=== PATIENT | male | born 1960 | race Caucasian/White ===

== ENCOUNTER → 2016-09-06 | Outpatient (CLI) | payer OTHER ==
[2016-09-06 08:20] LABS: ABSOLUTE BASOPHILS # (AUTO) 0.1 10^3/uL (0.0-0.2); ABSOLUTE EOSINOPHILS # (AUTO) 0.2 10^3/uL (0.0-0.6); ABSOLUTE LYMPHOCYTES (AUTO) 1.9 10^3/uL (0.5-4.7); ABSOLUTE MONOCYTES (AUTO) 0.5 10^3/uL (0.1-1.4); ABSOLUTE NEUT (AUTO) 3.4 10^3/uL (1.7-8.2); BASOPHILS % (AUTO) 1.4 % (0-2); EOSINOPHILS % (AUTO) 3.3 % (0-6); HEMATOCRIT 45.9 % (37.9-51.0); HEMOGLOBIN 15.4 g/dL (13.5-17.0); HGB HCT DIFFERENCE 0.3; MEAN CORPUSCULAR HEMOGLOBIN 31.9 pg (27.0-33.4); MEAN CORPUSCULAR HGB CONC 33.7 g/dL (32.0-36.0); MEAN CORPUSCULAR VOLUME 95 fl (80-97); MONOCYTES % (AUTO) 8.7 % (3-13); RED BLOOD COUNT 4.84 10^6/uL (4.35-5.55); RED CELL DISTRIBUTION WIDTH 12.9 % (11.5-14.0); SEGMENTED NEUTROPHILS % (AUTO) 55.6 % (42-78)
[2016-09-06 08:43] LABS: ALANINE AMINOTRANSFERASE 114 U/L (21-72); ALBUMIN 4.9 g/dL (3.5-5.0); ALKALINE PHOSPHATASE 55 U/L (38-126); ANION GAP 12 (5-19); ASPARTATE AMINO TRANSFERASE 96 U/L (17-59); BILIRUBIN,TOTAL 0.9 mg/dL (0.2-1.3); BLOOD UREA NITROGEN 12 mg/dL (7-20); CALCIUM 9.5 mg/dL (8.4-10.2); CARBON DIOXIDE 29 mmol/L (22-30); CHLORIDE 99 mmol/L (98-107); CHOLESTEROL 231.22 mg/dL (0-200); CREATININE RESULT 0.88 mg/dL (0.52-1.25); Direct HDL 60 mg/dL (>40); GLUCOSE 114 mg/dL (75-110); POTASSIUM 4.7 mmol/L (3.6-5.0); SODIUM 139.6 mmol/L (137-145); TOTAL PROTEIN 7.4 g/dL (6.3-8.2); TRIGLYCERIDES 152 mg/dL (<150)
[2016-09-06 08:54] LABS: DIRECT LDL 167 mg/dL (<100)
[2016-09-06 08:57] LABS: VLDL CHOLESTEROL 30.4 mg/dL (10-31)
== END ==
LOC: CCC 07:36
DX: J44.9 Chronic obstructive pulmonary disease, unspecified (principal)
CPT/HCPCS: 36415; 80053; 80061; 83036; 84443; 85025

== ENCOUNTER → 2016-09-13 | Outpatient (CLI) | payer OTHER ==
[2016-09-14 10:37] LABS: HEPATITIS C VIRUS AB <0.1 s/co ratio (0.0-0.9)
[2016-09-14 11:15] LABS: HEPATITIS A AB TOTAL Negative (Negative)
== END ==
LOC: CCC 10:05
DX: R94.5 Abnormal results of liver function studies (principal); J44.9 Chronic obstructive pulmonary disease, unspecified; R03.0 Elevated blood-pressure reading, without diagnosis of hypertension
CPT/HCPCS: 36415; 82977; 86317; 86708; 86709; 86803; 86804; 87340

== ENCOUNTER → 2017-09-27 | Outpatient (CLI) | payer OTHER ==
[2017-09-27 09:46] LABS: ABSOLUTE BASOPHILS # (AUTO) 0.1 10^3/uL (0.0-0.2); ABSOLUTE EOSINOPHILS # (AUTO) 0.2 10^3/uL (0.0-0.6); ABSOLUTE LYMPHOCYTES (AUTO) 1.9 10^3/uL (0.5-4.7); ABSOLUTE MONOCYTES (AUTO) 0.5 10^3/uL (0.1-1.4); ABSOLUTE NEUT (AUTO) 3.4 10^3/uL (1.7-8.2); BASOPHILS % (AUTO) 0.9 % (0-2); EOSINOPHILS % (AUTO) 3.3 % (0-6); HEMOGLOBIN 16.5 g/dL (13.5-17.0); MEAN CORPUSCULAR HEMOGLOBIN 32.8 pg (27.0-33.4); MEAN CORPUSCULAR HGB CONC 34.4 g/dL (32.0-36.0); MEAN CORPUSCULAR VOLUME 95 fl (80-97); MONOCYTES % (AUTO) 8.6 % (3-13); PLATELET COUNT 196 10^3/uL (150-450); RED BLOOD COUNT 5.04 10^6/uL (4.35-5.55); RED CELL DISTRIBUTION WIDTH 13.6 % (11.5-14.0); SEGMENTED NEUTROPHILS % (AUTO) 56.2 % (42-78); TOTAL CELLS COUNTED % (AUTO) 100 %; WHITE BLOOD COUNT 6.1 10^3/uL (4.0-10.5)
[2017-09-27 10:08] LABS: ALANINE AMINOTRANSFERASE 202 U/L (21-72); ALBUMIN 4.6 g/dL (3.5-5.0); ALKALINE PHOSPHATASE 60 U/L (38-126); ANION GAP 10 (5-19); ASPARTATE AMINO TRANSFERASE 132 U/L (17-59); BILIRUBIN,DIRECT 0.5 mg/dL (0.0-0.4); BILIRUBIN,TOTAL 0.6 mg/dL (0.2-1.3); BLOOD UREA NITROGEN 10 mg/dL (7-20); CALCIUM 10.2 mg/dL (8.4-10.2); CARBON DIOXIDE 29 mmol/L (22-30); CHLORIDE 101 mmol/L (98-107); CHOLESTEROL 230.22 mg/dL (0-200); GLUCOSE 124 mg/dL (75-110); POTASSIUM 5.2 mmol/L (3.6-5.0); TOTAL PROTEIN 7.6 g/dL (6.3-8.2); TRIGLYCERIDES 119 mg/dL (<150)
[2017-09-27 10:20] LABS: DIRECT LDL 172 mg/dL (<100)
== END ==
LOC: CCC 09:02
DX: J44.9 Chronic obstructive pulmonary disease, unspecified (principal)
CPT/HCPCS: 36415; 80053; 80061; 83036; 84153; 84443; 85025

== ENCOUNTER 2017-11-12 07:28 | Inpatient (IN) | payer SELFPAY ==
[2017-11-12] MEDS ORDERED: METHYLPREDNISOLONE INJ 125 MG/2 ML SDV IV ONE (07:48)
[2017-11-12] MEDS ORDERED: IPRATROPIUM/ALBUTEROL 0.5-2.5 MG/3 ML AMPUL NEB ONE (07:48)
--- NOTE | 2017-11-12 07:52 | ER Document Report ---
ED General - General Chief Complaint: Shortness Of Breath Stated Complaint: SHORTNESS OF BREATH Time Seen by Provider: 11/12/17 07:42 Mode of Arrival: Ambulatory Information source: Patient Notes: 57 yr old male history of COPD presents with complaints of COPD exacerbation. Patient notes he has been out of his medications for the past month. He does not have a PCP. Admits to intermittent productive cough. Denies any fevers or chills admits shortness of breath, patient is not on oxygen has never been intubated TRAVEL OUTSIDE OF THE [place] IN LAST 30 DAYS: No - HPI Onset: Last week Onset/Duration: Worse Quality of pain: No pain Severity: Moderate Pain Level: Denies Associated symptoms: Nonproductive cough, Productive cough, Shortness of breath Exacerbated by: Denies Relieved by: Denies Similar symptoms previously: No Recently seen / treated by doctor: No - Related Data Allergies/Adverse Reactions: fentanyl [Fentanyl] Adverse Reaction (Verified 11/12/17 07:36) Past Medical History - Social History Smoking Status: Current Every Day Smoker Cigarette use (# per day): Yes Chew tobacco use (# tins/day): No Smoking Education Provided: Yes Family History: Hypertension - Past Medical History Cardiac Medical History: Reports: Hx Hypertension Pulmonary Medical History: Reports: Hx Bronchitis, Hx COPD Musculoskeltal Medical History: Reports Hx Arthritis Psychiatric Medical History: Denies: Hx Depression Past Surgical History: Reports: Hx Orthopedic Surgery - upper back, right arm - Immunizations Hx Diphtheria, Pertussis, Tetanus Vaccination: Yes Review of Systems - Review of Systems Notes: REVIEW OF SYSTEMS: CONSTITUTIONAL : Denies fever, chills, or sweats. Denies recent illness. EENT: Denies eye, ear, throat, or mouth pain or symptoms. Denies nasal or sinus congestion or discharge. Denies throat, tongue, or mouth swelling or difficulty swallowing. CARDIOVASCULAR: Denies chest pain. Denies palpitations or racing or irregular heart beat. Denies ankle edema. RESPIRATORY: Admits intermittent productive cough shortness breath difficulty breathing GASTROINTESTINAL: Denies abdominal pain or distention. Denies nausea, vomiting , or diarrhea. Denies blood in vomitus, stools, or per rectum. Denies black, tarry stools. Denies constipation. GENITOURINARY: Denies difficulty urinating, painful urination, burning, frequency, blood in urine, or discharge. MUSCULOSKELETAL: Denies back or neck pain or stiffness. Denies joint pain or swelling. SKIN: Denies rash, lesions or sores. HEMATOLOGIC : Denies easy bruising or bleeding. LYMPHATIC: Denies swollen, enlarged glands. NEUROLOGICAL: Denies confusion or altered mental status. Denies passing out or loss of consciousness. Denies dizziness or lightheadedness. Denies headache. Denies weakness or paralysis or loss of use of either side. Denies problems with gait or speech. Denies sensory loss, numbness, or tingling. Denies seizures. PSYCHIATRIC: Denies anxiety or stress. Denies depression, suicidal ideation, or homicidal ideation. ALL OTHER SYSTEMS REVIEWED AND NEGATIVE. Dictation was performed using [employer] voice recognition software PHYSICAL EXAMINATION: GENERAL: Appears older than stated age mild respiratory distress HEAD: Atraumatic, normocephalic. EYES: Pupils equal round and reactive to light, extraocular movements intact, sclera anicteric, conjunctiva are normal. ENT: Nares patent, oropharynx clear without exudates. Moist mucous membranes. NECK: Normal range of motion, supple without lymphadenopathy LUNGS: Inspiratory expiratory wheezing noted all throughout tachypneic HEART: Tachycardic ABDOMEN: Soft, nontender, nondistended abdomen. No guarding, no rebound. No masses appreciated. Musculoskeletal: Normal range of motion, no pitting or edema. No cyanosis. NEUROLOGICAL: Cranial nerves grossly intact. Normal speech, normal gait. Normal sensory, motor exams PSYCH: Normal mood, normal affect. SKIN: Warm, Dry, normal turgor, no rashes or lesions noted. Physical Exam - Vital signs Vitals: Temp Pulse Resp BP Pulse Ox 98.4 F 95 26 H 155/84 H 91 L 11/12/17 07:35 11/12/17 07:35 11/12/17 07:35 11/12/17 07:35 11/12/17 07:35 Course - Re-evaluation Re-evalutation: 11/12/17 07:52 Patient was placed on oxygen upon arrival, he is on 2 L nasal cannula satting 95 %, he overall looks well, patient will be sent for imaging duo nebs and Solu- Medrol 11/12/17 09:51 Patient was ambulated and was satting anywhere between 92-95%, I took him off oxygen will watch him longer otherwise this appears to be acute COPD exacerbation 11/12/17 10:29 pt now satting 88-90% , will observe in hopsital. - Vital Signs Vital signs: Temp Pulse Resp BP Pulse Ox 98.4 F 95 19 129/71 H 94 11/12/17 07:35 11/12/17 07:35 11/12/17 08:01 11/12/17 08:01 11/12/17 08:01 - Laboratory Result Diagrams: 11/12/17 08:24 11/12/17 08:24 Laboratory results interpreted by me: 11/12/17 11/12/17 08:24 08:24 Eosinophils % 6.9 H Basophils % 2.2 H Sodium 136.2 L Glucose 118 H Direct Bilirubin 0.5 H AST 150 H ALT 173 H - Diagnostic Test Radiology reviewed: Image reviewed, Reports reviewed Discharge - Discharge Clinical Impression: COPD exacerbation Condition: Stable Disposition: ADMITTED OBSERVATION Admitting Provider: Hospitalist Unit Admitted: Telemetry
--- NOTE | 2017-11-12 08:18 | RADIOLOGY REPORT (SQ) ---
EXAM DESCRIPTION: CHEST 2 VIEWS COMPLETED DATE/TIME: 11/12/2017 7:58 am REASON FOR STUDY: copd exacerbation COMPARISON: 06/02/2016 EXAM PARAMETERS: NUMBER OF VIEWS: two views TECHNIQUE: Digital Frontal and Lateral radiographic views of the chest acquired. RADIATION DOSE: NA LIMITATIONS: none FINDINGS: LUNGS AND PLEURA: No opacities, masses or pneumothorax. No pleural effusion. MEDIASTINUM AND HILAR STRUCTURES: No masses or contour abnormalities. HEART AND VASCULAR STRUCTURES: Heart normal size. No evidence for failure. BONES: No acute findings. HARDWARE: None in the chest. OTHER: No other significant finding. IMPRESSION: NO ACUTE RADIOGRAPHIC FINDING IN THE CHEST. TECHNICAL DOCUMENTATION: JOB ID: [id number] [employer]- All Rights Reserved Reading location - IP/workstation name: [email or web address]
[2017-11-12 08:38] LABS: ABSOLUTE BASOPHILS # (AUTO) 0.1 10^3/uL (0.0-0.2); ABSOLUTE EOSINOPHILS # (AUTO) 0.4 10^3/uL (0.0-0.6); ABSOLUTE LYMPHOCYTES (AUTO) 1.7 10^3/uL (0.5-4.7); ABSOLUTE MONOCYTES (AUTO) 0.6 10^3/uL (0.1-1.4); ABSOLUTE NEUT (AUTO) 3.7 10^3/uL (1.7-8.2); BASOPHILS % (AUTO) 2.2 % (0-2); EOSINOPHILS % (AUTO) 6.9 % (0-6); HEMATOCRIT 46.4 % (37.9-51.0); HEMOGLOBIN 15.9 g/dL (13.5-17.0); LYMPHOCYTES % (AUTO) 25.6 % (13-45); MEAN CORPUSCULAR HEMOGLOBIN 32.6 pg (27.0-33.4); MEAN CORPUSCULAR HGB CONC 34.3 g/dL (32.0-36.0); MEAN CORPUSCULAR VOLUME 95 fl (80-97); MONOCYTES % (AUTO) 8.7 % (3-13); PLATELET COUNT 197 10^3/uL (150-450); RED BLOOD COUNT 4.88 10^6/uL (4.35-5.55); RED CELL DISTRIBUTION WIDTH 13.7 % (11.5-14.0); SEGMENTED NEUTROPHILS % (AUTO) 56.6 % (42-78); TOTAL CELLS COUNTED % (AUTO) 100 %; WHITE BLOOD COUNT 6.5 10^3/uL (4.0-10.5)
[2017-11-12 08:52] LABS: ALANINE AMINOTRANSFERASE 173 U/L (21-72); ALBUMIN 4.4 g/dL (3.5-5.0); ALKALINE PHOSPHATASE 59 U/L (38-126); ANION GAP 8 (5-19); ASPARTATE AMINO TRANSFERASE 150 U/L (17-59); BILIRUBIN,DIRECT 0.5 mg/dL (0.0-0.4); BILIRUBIN,TOTAL 0.8 mg/dL (0.2-1.3); BLOOD UREA NITROGEN 10 mg/dL (7-20); CALCIUM 9.8 mg/dL (8.4-10.2); CARBON DIOXIDE 27 mmol/L (22-30); CHLORIDE 101 mmol/L (98-107); GLUCOSE 118 mg/dL (75-110); POTASSIUM 4.2 mmol/L (3.6-5.0); SODIUM 136.2 mmol/L (137-145); TOTAL PROTEIN 6.9 g/dL (6.3-8.2)
[2017-11-12] MEDS ORDERED: LEVALBUTEROL HCL NEB 0.63 MG/3 ML AMPUL NEB PRN (13:04)
[2017-11-12] MEDS ORDERED: ACETAMINOPHEN SOLN 325 MG/10.15 ML UDCUP PO PRN (13:05)
[2017-11-12] MEDS ORDERED: HYDRALAZINE HCL INJ/PF 20 MG/1 ML SDV IV PRN (13:12)
[2017-11-12] MEDS: METHYLPREDNISOLONE INJ 125 MG/2 ML SDV IV SCH ×2 (14:47→22:12)
[2017-11-12] MEDS: DOXYCYCLINE HYCLATE 100 MG TABLET PO SCH ×2 (14:47→22:15)
[2017-11-12] MEDS: BENZONATATE 100 MG CAPSULE PO SCH ×2 (14:47→22:12)
[2017-11-12] MEDS: HEPARIN SOD (PORCINE) 5,000 UNIT/ML 1 ML SYRINGE SUBCUT SCH ×2 (14:47→22:12)
[2017-11-12] MEDS: IPRATROPIUM/ALBUTEROL 0.5-2.5 MG/3 ML AMPUL NEB SCH ×2 (15:36→19:44)
[2017-11-12] MEDS ORDERED: METHYLPREDNISOLONE INJ 40 MG/1 ML SDV IV SCH (17:00)
--- NOTE | 2017-11-12 21:44 | PDOC H&P ---
History of Present Illness Admission Date/PCP: 11/12/17 11:16 Patient complains of: Shortness of breath & dyspnea History of Present Illness: GUILLE SUAREZ is a 57 year old male who presented to the ED with SOB, dyspnea, and cough x 2 weeks. The patient states he ran out of his advair a 'few weeks ago' and his repiratory symptoms have been getting progressively worse since then. The patient reports he was taking Mucinex and using his albuterol inhalers and nebulizers to help with his symptoms, but they offered no relief. Additionally, he reports that his dyspnea is exacerbated by smoke and strong odors ('if someone is wearing too much cologne'). The patient states that his SOB, coughing, and dyspnea have been persist, day and night, over the last two weeks - so much so that he is unable to sleep. PMH includes HTN, COPD, arthritis. The patient has never required intubation secondary to his COPD. While in the ED, the patient was given 3 Duoneb treatments and 125mg Solu- Medrol IV. The patient is resting in bed on supplemental oxygen 2L/min. He is able to speak in complete sentences, but needs to pause and take a breath in between each sentence. The patient is seen ambulating from the ED room to the bathroom without difficulty (off supplemental oxygen). However, following his ambulation, his Sp02 is 83-88% and the patient is purse lip breathing, and only able to speak in fragmented sentences. Past Medical History Cardiac Medical History: Reports: Hypertension Pulmonary Medical History: Reports: Bronchitis, Chronic Obstructive Pulmonary Disease (COPD) Musculoskeltal Medical History: Reports: Arthritis Psychiatric Medical History: Denies: Depression Past Surgical History Past Surgical History: Reports: Orthopedic Surgery - upper back disk repair, right arm fracture repair Social History Information Source: Patient Lives with: Alone Smoking Status: Current Every Day Smoker - 3-4 cigarettes p/day Frequency of Alcohol Use: None Hx Recreational Drug Use: No Drugs: None Hx Prescription Drug Abuse: No 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 WHEN HE WAS EXPOSED TO DUST/CHEMICALS AT WORK, TYPICALLY ENDING UP IN THE HOSPITAL 3 DAYS LATER WITH RESPIRATORY SYMPTOMS - Advance Directive Resuscitation Status: Full Code Family History Family History: Hypertension Parental Family History Reviewed: Yes Children Family History Reviewed: Yes Sibling(s) Family History Reviewed.: Yes Medication/Allergy Home Medications: No Home Medications 04/03/18 Allergies/Adverse Reactions: fentanyl [Fentanyl] Adverse Reaction (Verified 11/12/17 07:36) Review of Systems Respiratory: PRESENT: as per HPI, cough, dyspnea Gastrointestinal: PRESENT: abdominal pain - 2/2 COUGHING - MUSCULOSKELETAL PAIN Genitourinary: PRESENT: nocturia - 3-4 TIMES P NIGHT Neurological: PRESENT: other - HEADACHE 2/2 COUGHING Psychiatric: PRESENT: anxiety - PATIENT REPORTS HE EXPERIENCES ANXIETY THAT HE ' WILL NOT WAKE UP' BECAUSE OF THIS CURRENT COPD EXACERBATION. HE STATES IT KEEPS HIM UP AT NIGHT. Physical Exam Vital Signs: Temp Pulse Resp BP Pulse Ox 98.8 F 101 H 20 151/83 H 93 11/12/17 19:28 11/12/17 19:44 11/12/17 19:44 11/12/17 19:28 11/12/17 19:44 Pulse Oximeter Continuous Start: 11/12/17 13: 03 Freq: RTQ4 Status: Active Document 11/12/17 19:44 LDA (Rec: 11/12/17 20:40 LDA [email or web address]) Pulse Oximetry Assessment Oxygen Saturation (92-100) 93 Oxygen Flow Rate (L/min) 2 Oxygen Delivery Method Nasal Cannula Fraction of Inspired Oxygen (FIO2) 28 Equipment Usage Equipment in Use Continuous SpO2 Machine # [id number] General appearance: PRESENT: well-developed, well-nourished Eye exam: PRESENT: conjunctiva pink, PERRLA Mouth exam: PRESENT: moist Teeth exam: PRESENT: poor dentation - DENTURES Neck exam: PRESENT: full ROM Respiratory exam: PRESENT: wheezes - IN ALL LUNG SANDY Cardiovascular exam: PRESENT: +S1, +S2 Pulses: PRESENT: normal radial pulses, normal dorsalis pedis pul GI/Abdominal exam: PRESENT: soft. ABSENT: tenderness Rectal exam: PRESENT: deferred Extremities exam: PRESENT: full ROM Musculoskeletal exam: PRESENT: ambulatory, full ROM Neurological exam: PRESENT: alert, awake, oriented to person, oriented to place , oriented to time, oriented to situation Results Impressions: Chest X-Ray 11/12/17 07:48 IMPRESSION: NO ACUTE RADIOGRAPHIC FINDING IN THE CHEST. Status: Imported from PACS Assessment & Plan - Diagnosis (1) COPD exacerbation Is this a current diagnosis for this admission?: Yes Plan: COPD exacerbation secondary to non-compliance with home medication Initiate Advair, scheduled and PRN nebulizer treatments, IV steroids around-the- clock Continuous pulse oximetry Supplemental oxygen via nasal cannula to maintain Sp02>88% Mucinex daily Doxycycline for acute bronchitis antibiotic coverage (2) Hypertension Qualifiers: Hypertension type: essential hypertension Qualified Code(s): I10 - Essential (primary) hypertension Is this a current diagnosis for this admission?: Yes Plan: Patient endorses a history of HTN, unclear what anti-HTN medical he takes Was taking Norvasc during previous hospitalizaiton, will resume 5mg Norvasc PO daily 10mg IV Hydralazine for SBP > 160 (3) Tobacco use disorder Is this a current diagnosis for this admission?: Yes Plan: The patient admits to 40 pack year history. He is attempting to quit. Currently only smoking 3-4 cigarettes per day, was previously smoking 1 pack per day. Nicotine patch offered, but the patient declined. Guidance was provided regarding the importance of smoking cessation - Time Critical Time spent with patient: 25-34 minutes Smoking Cessation Education: 3 to 10 minutes Medications reviewed and adjusted accordingly: Yes Anticipated discharge: Home Within: within 48 hours - Inpatient Certification Based on my medical assessment, after consideration of the patient's comorbidities, presenting symptoms, or acuity I expect that the services needed warrant INPATIENT care.: Yes I certify that my determination is in accordance with my understanding of Medicare's requirements for reasonable and necessary INPATIENT services [42 CFR 412.3e].: Yes Medical Necessity: Need for Nebulizer Therapy and Monitoring of Response - Plan Summary Plan Summary: Admit under obervation status to medical floor with continuous pulse oximetry. Plan to optimize COPD medication regimen and discharge home. Will need discharge planning's assistance to get patient set up at [facility]
[2017-11-12] MEDS ORDERED: AMLODIPINE BESYLATE 5 MG TABLET PO ONE (21:45)
[2017-11-12] MEDS: FLUTICASONE/SALMETEROL DISKUS 250-50 MCG/DOSE IH SCH (22:13)
[2017-11-13] MEDS: IPRATROPIUM/ALBUTEROL 0.5-2.5 MG/3 ML AMPUL NEB SCH ×6 (00:27→19:53)
[2017-11-13 05:36] LABS: HEMOGLOBIN 15.4 g/dL (13.5-17.0); MEAN CORPUSCULAR HEMOGLOBIN 32.8 pg (27.0-33.4); MEAN CORPUSCULAR HGB CONC 34.2 g/dL (32.0-36.0); MEAN CORPUSCULAR VOLUME 96 fl (80-97); PLATELET COUNT 185 10^3/uL (150-450); RED BLOOD COUNT 4.69 10^6/uL (4.35-5.55); RED CELL DISTRIBUTION WIDTH 13.6 % (11.5-14.0); WHITE BLOOD COUNT 11.2 10^3/uL (4.0-10.5)
[2017-11-13 05:53] LABS: ANION GAP 10 (5-19); BLOOD UREA NITROGEN 16 mg/dL (7-20); CALCIUM 9.6 mg/dL (8.4-10.2); CARBON DIOXIDE 27 mmol/L (22-30); CHLORIDE 102 mmol/L (98-107); GLUCOSE 224 mg/dL (75-110); POTASSIUM 4.4 mmol/L (3.6-5.0); SODIUM 139.4 mmol/L (137-145)
[2017-11-13] MEDS: HEPARIN SOD (PORCINE) 5,000 UNIT/ML 1 ML SYRINGE SUBCUT SCH ×3 (06:31→21:55)
[2017-11-13] MEDS: METHYLPREDNISOLONE INJ 125 MG/2 ML SDV IV SCH ×4 (06:31→23:53)
[2017-11-13] MEDS: BENZONATATE 100 MG CAPSULE PO SCH ×3 (06:31→21:55)
[2017-11-13] MEDS ORDERED: ALBUTEROL SULFATE HFA (90 MCG/PUFF) 200 PUFF/8.5 GM MDI IH PRN (10:07)
[2017-11-13] MEDS: DOXYCYCLINE HYCLATE 100 MG TABLET PO SCH ×3 (10:10→18:38)
[2017-11-13] MEDS: AMLODIPINE BESYLATE 5 MG TABLET PO SCH (10:10)
[2017-11-13] MEDS: FLUTICASONE/SALMETEROL DISKUS 250-50 MCG/DOSE IH SCH ×2 (10:11→18:38)
[2017-11-13] MEDS ORDERED: IPRATROPIUM/ALBUTEROL 0.5-2.5 MG/3 ML AMPUL NEB PRN (12:47)
--- NOTE | 2017-11-13 18:03 | PDOC PROGRESS REPORT ---
Subjective Progress Note for:: 11/13/17 Subjective:: GUILLE SUAREZ is a 57 year old male who presented to the emergency department with shortness of breath, dyspnea, cough 2 weeks. He was admitted for COPD exacerbation. The patient states that he ran out of his Advair a few weeks ago and his respiratory symptoms have been progressively getting worse since then. PMH includes hypertension, COPD, arthritis. The patient was seen this morning on rounds. He is resting comfortably in the bedside recliner on supplemental oxygen at 3 L/min. the patient is able to speak in complete sentences, but needs to pause and take a breath in between each sentence. Patient states that he feels much better than when he initially presented to the emergency department. His wheezing has greatly improved, his lung sounds are clear to auscultation in all [place]. His continuous pulse oximetry is reading 93-95%. Reason For Visit: COPD EXACERBATION Physical Exam Vital Signs: Temp Pulse Resp BP Pulse Ox 98.5 F 111 H 24 H 138/72 H 91 L 11/13/17 13:26 11/13/17 16:39 11/13/17 16:39 11/13/17 13:26 11/13/17 16:39 Pulse Oximeter Continuous Start: 11/12/17 13: 03 Freq: RTQ4 Status: Active Document 11/13/17 16:39 HCR (Rec: 11/13/17 16:55 HCR [email or web address]) Pulse Oximetry Assessment Oxygen Saturation (92-100) 91 Oxygen Flow Rate (L/min) 3 Oxygen Delivery Method Nasal Cannula Equipment Usage Equipment in Use Continuous SpO2 Machine # 14 Intake & Output 11/12/17 11/13/17 11/14/17 06:59 06:59 06:59 Intake Total 1190 Balance 1190 General appearance: PRESENT: no acute distress Eye exam: PRESENT: conjunctiva pink, PERRLA Mouth exam: PRESENT: moist Neck exam: PRESENT: full ROM Respiratory exam: PRESENT: clear to auscultation silviano, symmetrical, unlabored - Requiring supplemental oxygen. Continuous pulse oximetry Cardiovascular exam: PRESENT: +S1, +S2 Pulses: PRESENT: normal radial pulses, normal dorsalis pedis pul Vascular exam: PRESENT: normal capillary refill GI/Abdominal exam: PRESENT: normal bowel sounds, soft Rectal exam: PRESENT: deferred Extremities exam: PRESENT: full ROM Musculoskeletal exam: PRESENT: ambulatory, full ROM Neurological exam: PRESENT: alert, awake, oriented to person, oriented to place , oriented to time, oriented to situation Psychiatric exam: PRESENT: appropriate affect Skin exam: PRESENT: normal color Results Laboratory Results: 11/13/17 05:01 11/13/17 05:01 11/13/17 11/13/17 05:01 05:01 WBC 11.2 H RBC 4.69 Hgb 15.4 Hct 45.0 MCV 96 MCH 32.8 MCHC 34.2 RDW 13.6 Plt Count 185 Sodium 139.4 Potassium 4.4 Chloride 102 Carbon Dioxide 27 Anion Gap 10 BUN 16 Creatinine 0.81 Est GFR ( Amer) > 60 Est GFR (Non-Af Amer) > 60 Glucose 224 H Calcium 9.6 Phosphorus 3.0 Magnesium 2.0 Impressions: Chest X-Ray 11/12/17 07:48 IMPRESSION: NO ACUTE RADIOGRAPHIC FINDING IN THE CHEST. Status: Imported from PACS Assessment & Plan - Diagnosis (1) COPD exacerbation Is this a current diagnosis for this admission?: Yes Plan: COPD exacerbation secondary to non-compliance with home medication Continue Advair, scheduled and PRN nebulizer treatments, IV steroids around-the- clock Continuous pulse oximetry Supplemental oxygen via nasal cannula to maintain Sp02>88% Mucinex daily Doxycycline for acute bronchitis antibiotic coverage (2) Hypertension Qualifiers: Hypertension type: essential hypertension Qualified Code(s): I10 - Essential (primary) hypertension Is this a current diagnosis for this admission?: Yes Plan: Patient endorses a history of HTN, unclear what anti-HTN medical he takes Was taking Norvasc during previous hospitalizaiton, resumed 5mg Norvasc PO daily and have maintained adequate blood pressure control since admission. 10mg IV Hydralazine for SBP > 160 (3) Tobacco use disorder Is this a current diagnosis for this admission?: Yes Plan: The patient admits to 40 pack year history. He is attempting to quit. Currently only smoking 3-4 cigarettes per day, was previously smoking 1 pack per day. Nicotine patch offered, but the patient declined. Guidance was provided regarding the importance of smoking cessation - Time Time Spent with patient: 15-24 minutes Anticipated discharge: Home - Inpatient Certification Based on my medical assessment, after consideration of the patient's comorbidities, presenting symptoms, or acuity I expect that the services needed warrant INPATIENT care.: Yes I certify that my determination is in accordance with my understanding of Medicare's requirements for reasonable and necessary INPATIENT services [42 CFR 412.3e].: Yes Medical Necessity: Risk of Complication if Not Cared For in Hospital - Plan Summary Plan Summary: Ultimately, the plan is to discharge the patient home
[2017-11-13] MEDS ORDERED: FLUTICASONE/SALMETEROL DISKUS 500-50 MCG/DOSE IH ONE (23:48)
[2017-11-13] MEDS: FLUTICASONE/SALMETEROL DISKUS 500-50 MCG/DOSE IH SCH (23:56)
[2017-11-14] MEDS: IPRATROPIUM/ALBUTEROL 0.5-2.5 MG/3 ML AMPUL NEB SCH ×6 (00:02→20:13)
[2017-11-14] MEDS: BENZONATATE 100 MG CAPSULE PO SCH ×3 (05:32→23:14)
[2017-11-14] MEDS: METHYLPREDNISOLONE INJ 125 MG/2 ML SDV IV SCH ×4 (05:33→23:21)
[2017-11-14] MEDS: HEPARIN SOD (PORCINE) 5,000 UNIT/ML 1 ML SYRINGE SUBCUT SCH ×3 (05:33→23:15)
[2017-11-14 07:17] LABS: HEMATOCRIT 44.3 % (37.9-51.0); HEMOGLOBIN 15.1 g/dL (13.5-17.0); MEAN CORPUSCULAR HEMOGLOBIN 32.9 pg (27.0-33.4); MEAN CORPUSCULAR VOLUME 97 fl (80-97); PLATELET COUNT 169 10^3/uL (150-450); RED BLOOD COUNT 4.59 10^6/uL (4.35-5.55); RED CELL DISTRIBUTION WIDTH 14.1 % (11.5-14.0); WHITE BLOOD COUNT 12.1 10^3/uL (4.0-10.5)
[2017-11-14 07:33] LABS: ANION GAP 7 (5-19); BLOOD UREA NITROGEN 21 mg/dL (7-20); CALCIUM 9.7 mg/dL (8.4-10.2); CARBON DIOXIDE 32 mmol/L (22-30); CHLORIDE 100 mmol/L (98-107); GLUCOSE 183 mg/dL (75-110); PHOSPHORUS 3.8 mg/dL (2.5-4.5); POTASSIUM 4.5 mmol/L (3.6-5.0); SODIUM 138.7 mmol/L (137-145)
[2017-11-14 09:22] LABS: ARTERIAL BLOOD BASE EXCESS 2.8 mmol/L; ARTERIAL BLOOD FIO2 3L; ARTERIAL BLOOD HCO3 26.9 mmol/L (20-26); ARTERIAL BLOOD PCO2 39.8 mmHg (35-45); ARTERIAL BLOOD PH 7.45 (7.35-7.45); ARTERIAL BLOOD PO2 78.1 mmHg (80-100); ARTERIAL BLOOD TOTAL CO2 28.1 mmol/L (23-27)
[2017-11-14] MEDS: DOXYCYCLINE HYCLATE 100 MG TABLET PO SCH ×3 (10:53→23:13)
[2017-11-14] MEDS: FLUTICASONE/SALMETEROL DISKUS 500-50 MCG/DOSE IH SCH ×2 (10:53→23:13)
[2017-11-14] MEDS: AMLODIPINE BESYLATE 5 MG TABLET PO SCH (10:53)
--- NOTE | 2017-11-14 12:24 | Physician Advisory Note ---
Physician Advisor ProgressNote .: Pursuant to the plan for [facility], I have reviewed the medical record for this patient. Physician Advisor Statement: Please consider documenting, if you agree: 1. "Acute Hypoxemic Respiratory Failure, evidenced by hypoxemia & increased work of breathing" 2. STatus: appropriate to change to Inpatient status. Thanks! CK
--- NOTE | 2017-11-14 16:41 | Pulmonary Function Test ---
Pulmonary Function Test Date of Procedure:: 11/14/17 INDICATION:: Dyspnea Referring Provider: Dr.M. Dugan Gospel Worker: Brooks Mullen - Report Spirometry: FVC 1.78 L 41% postbronchodilator 2.09 L 48% FEV1 0.93 L 27% postbronchodilator 0.79 L 23% FEV1/FVC% 52 postbronchodilator therapy 38 predicted 81 FEF 25-75 0.64 L 18% postbronchodilator 0.3 911% Impression: Study demonstrates severe obstructive ventilatory defect. With insignificant response to bronchodilator therapy. Study suggests restrictive ventilatory defect. Restrictive defect cannot be based on spirometry alone. Restrictive defect may mask the degree of obstruction. If clinically indicated additional testing would be helpful
--- NOTE | 2017-11-14 17:09 | PDOC PROGRESS REPORT ---
Subjective Progress Note for:: 11/14/17 Subjective:: GUILLE SUAREZ is a 57 year old male who presented to the emergency department with shortness of breath, dyspnea, cough 2 weeks. He was admitted for COPD exacerbation. The patient states that he ran out of his Advair a few weeks ago and his respiratory symptoms have been progressively getting worse since then. PMH includes hypertension, COPD, arthritis. The patient was seen this morning on rounds. He is resting comfortably in the bed on supplemental oxygen at 3 L/min. The patient is able to speak in complete sentences and he does not to pause and take a breath in between each sentence. Patient states that he feels much better than when he initially presented to the emergency department. He was able to walk around the 4th floor with supplemental oxygen. His continuous pulse oximetry is reading 93-95%. Plan for PFT today and optimize COPD regimen. Reason For Visit: COPD EXACERBATION Physical Exam Vital Signs: Temp Pulse Resp BP Pulse Ox 98.2 F 105 H 18 140/78 H 96 11/14/17 15:27 11/14/17 15:27 11/14/17 15:27 11/14/17 15:27 11/14/17 15:27 Pulse Oximeter Continuous Start: 11/12/17 13: 03 Freq: RTQ4 Status: Active Document 11/14/17 12:02 [facility] (Rec: 11/14/17 13:16 [facility] [email or web address]) Pulse Oximetry Assessment Oxygen Saturation (92-100) 92 Oxygen Flow Rate (L/min) 3 Oxygen Delivery Method Nasal Cannula Equipment Usage Equipment in Use Continuous SpO2 Machine # 14 Intake & Output 11/13/17 11/14/17 11/15/17 06:59 06:59 06:59 Intake Total 1190 2363 1210 Output Total 5 Balance 1190 2358 1210 General appearance: PRESENT: no acute distress Eye exam: PRESENT: conjunctiva pink, PERRLA Mouth exam: PRESENT: moist Neck exam: PRESENT: full ROM Respiratory exam: PRESENT: clear to auscultation silviano, prolonged expiratory phas , symmetrical Cardiovascular exam: PRESENT: +S1, +S2 Pulses: PRESENT: normal radial pulses, normal dorsalis pedis pul GI/Abdominal exam: PRESENT: normal bowel sounds, soft. ABSENT: tenderness Rectal exam: PRESENT: deferred Extremities exam: PRESENT: full ROM Musculoskeletal exam: PRESENT: ambulatory, full ROM Neurological exam: PRESENT: alert, awake, oriented to person, oriented to place , oriented to time, oriented to situation Psychiatric exam: PRESENT: appropriate affect Results Laboratory Results: 11/14/17 06:21 11/14/17 06:21 11/14/17 11/14/17 11/14/17 06:21 06:21 07:11 WBC 12.1 H RBC 4.59 Hgb 15.1 Hct 44.3 MCV 97 MCH 32.9 MCHC 34.0 RDW 14.1 H Plt Count 169 Carbonic Acid Cancelled HCO3/H2CO3 Ratio Cancelled ABG pH Cancelled ABG pCO2 Cancelled ABG pO2 Cancelled ABG HCO3 Cancelled ABG O2 Saturation Cancelled ABG Base Excess Cancelled FiO2 Cancelled Sodium 138.7 Potassium 4.5 Chloride 100 Carbon Dioxide 32 H Anion Gap 7 BUN 21 H Creatinine 0.76 Est GFR ( Amer) > 60 Est GFR (Non-Af Amer) > 60 Glucose 183 H Calcium 9.7 Phosphorus 3.8 Magnesium 2.2 11/14/17 09:05 WBC RBC Hgb Hct MCV MCH MCHC RDW Plt Count Carbonic Acid 1.20 HCO3/H2CO3 Ratio 22:1 ABG pH 7.45 ABG pCO2 39.8 ABG pO2 78.1 L ABG HCO3 26.9 H ABG O2 Saturation 96.0 ABG Base Excess 2.8 FiO2 3L Sodium Potassium Chloride Carbon Dioxide Anion Gap BUN Creatinine Est GFR ( Amer) Est GFR (Non-Af Amer) Glucose Calcium Phosphorus Magnesium Impressions: Chest X-Ray 11/12/17 07:48 IMPRESSION: NO ACUTE RADIOGRAPHIC FINDING IN THE CHEST. Status: Imported from PACS Assessment & Plan - Diagnosis (1) COPD exacerbation Is this a current diagnosis for this admission?: Yes Plan: COPD exacerbation secondary to non-compliance with home medication Continue Advair (LABA) initiate Spiriva (LAMA) Scheduled and PRN nebulizer treatments, Solu-Medrol IV every 6 hours Continuous pulse oximetry Supplemental oxygen via nasal cannula to maintain Sp02>88% Mucinex daily Doxycycline for acute bronchitis antibiotic coverage PFT completed today. Demonstrates severe obstructive ventilatory jhon defect. Insignificant response to bronchodilator therapy. (2) Hypertension Qualifiers: Hypertension type: essential hypertension Qualified Code(s): I10 - Essential (primary) hypertension Is this a current diagnosis for this admission?: Yes Plan: Patient endorses a history of HTN, unclear what anti-HTN medical he takes Was taking Norvasc during previous hospitalizaiton, increased Norvasc dose to 10mg daily for better blood pressure control. 10mg IV Hydralazine for SBP > 160 (3) Tobacco use disorder Is this a current diagnosis for this admission?: Yes - Time Time Spent with patient: 15-24 minutes Medications reviewed and adjusted accordingly: Yes Anticipated discharge: Home - Inpatient Certification Based on my medical assessment, after consideration of the patient's comorbidities, presenting symptoms, or acuity I expect that the services needed warrant INPATIENT care.: Yes I certify that my determination is in accordance with my understanding of Medicare's requirements for reasonable and necessary INPATIENT services [42 CFR 412.3e].: Yes Medical Necessity: Risk of Complication if Not Cared For in Hospital - Plan Summary Plan Summary: For now, the plan is to optimize the patient's COPD medication regimen. It is a possibility that he will need to be discharged home on continuous supplemental oxygen. Ultimately, the plan is to discharge the patient home.
[2017-11-14] MEDS ORDERED: ONDANSETRON HCL INJ/PF 4 MG/2 ML SDV IV PRN (20:05)
[2017-11-14] MEDS ORDERED: LANSOPRAZOLE 30 MG TAB.RAP.DR PO SCH (21:30)
--- NOTE | 2017-11-14 22:24 | CONSULTATION REPORT E ---
Consultation Report NAME: GUILLE SUAREZ : 1960 AGE: 57Y DATE: 11/14/2017 ROOM: 413 A TO: BAY ROMERO M.D. FROM: FRIDA TRISTAN M.D. Requesting Physician REASON FOR CONSULTATION: The patient is a 57-year-old male who came in with increased shortness of breath and coughing, purulent sputum production, and admitted for COPD exacerbation. Consulted because of increased shortness of breath. The patient claimed that he was coughing up blood tinged phlegm a few days ago. Denies chest pain. The patient claims that he ran out of his Spiriva inhaler for about a week or 2. He just taking Advair. Still smoking about a half a pack a day. Denies any chest pain, nausea, vomiting. PAST MEDICAL HISTORY: Hypertension, COPD, arthritis. SURGICAL HISTORY: Upper back disk repair, right arm fracture repair. SOCIAL HISTORY: Smokes about 3-4 cigarettes per day. Denies alcohol abuse or illicit drug use. 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 FAMILY HISTORY: Hypertension. ALLERGIES: FENTANYL. REVIEW OF SYSTEMS: CONSTITUTIONAL: No fever or chills. GASTROINTESTINAL: Has abdominal pain. RESPIRATORY: Complains about increased cough with wheezing and sometimes blood tinged hemoptysis. NEUROLOGICAL: Headaches. PSYCHIATRY: Anxiety. PHYSICAL EXAMINATION: GENERAL: The patient is awake, afebrile, short of breath, and slightly in respiratory distress. VITAL SIGNS: Temperature 98.2 with a T-max of 98.4, heart rate of 103, blood pressure 144/64, respiratory rate is 22, saturation is 92% on 3 liters of oxygen. EYES: No jaundice or pallor. EARS, NOSE, AND THROAT: No ear drainage. No nasal discharge. HEAD AND NECK: No scalp swelling or tenderness. Neck is supple. CHEST AND LUNGS: Wheezing bilaterally, rhonchi bilaterally. CARDIOVASCULAR: S1 and S2 is distinct, tachycardia. Regular rhythm. ABDOMEN: Flabby, positive bowel sounds, soft, nondistended, nontender. EXTREMITIES: No joint swelling, no cellulitis. DIAGNOSTIC STUDIES: CBC done today showed white count of 12.1, hemoglobin is 15.1, hematocrit is 44.3, platelet count is 169. ABG done today showed pH of 7.45, pCO2 of 39.8, pO2 of 78.1, saturation 96%. Chemistry done today showed sodium 138, potassium 4.5, chloride 100, CO2 is 32, BUN 21, creatinine is 0.76, calcium is 9.7, glucose 183. Chest x-ray done today showed absence of cardiomegaly or no pleural effusion, no remarkable infiltrates on both lungs. Cardiac silhouette appeared normal. Spirometry done today showed very severe obstructive airway defect with significant bronchodilator response. ASSESSMENT: 1. COPD/asthma in acute exacerbation. 2. Hemoptysis. 3. Severe cough episodes probably from GERD. PLAN/RECOMMENDATION: 1. We will start with Prevacid 30 mg once daily. 2. We will do a CT scan of the chest without contrast. 3. We will provide patient a nicotine patch 14 mg per day, to be applied every morning removed at night. 4. Continue Advair 500 mcg inhaler 1 puff daily. 5. Continue Spiriva inhaler 1 puff daily. 6. Continue nebulizer every 6 hours as needed and DuoNeb every 4 hours around the clock. 7. Continue Solu-Medrol 80 mg IV q.6 hours. DICTATING PHYSICIAN: BAY ROMERO MD,JENNIFER,MPH [id number] PHY#: [id number] ID: [id number] JOB#: [id number] ACCT: [id number] cc:BAY ROMERO M.D. > MTD
[2017-11-14] MEDS: ZOLPIDEM TARTRATE 5 MG TABLET PO PRN (23:15)
[2017-11-15] MEDS: IPRATROPIUM/ALBUTEROL 0.5-2.5 MG/3 ML AMPUL NEB SCH ×7 (00:07→23:55)
[2017-11-15] MEDS: BENZONATATE 100 MG CAPSULE PO SCH ×3 (05:47→21:16)
[2017-11-15] MEDS: HEPARIN SOD (PORCINE) 5,000 UNIT/ML 1 ML SYRINGE SUBCUT SCH ×3 (05:47→21:16)
[2017-11-15] MEDS: METHYLPREDNISOLONE INJ 125 MG/2 ML SDV IV SCH ×3 (05:47→19:35)
--- NOTE | 2017-11-15 08:41 | RADIOLOGY REPORT (SQ) ---
EXAM DESCRIPTION: CT CHEST WITHOUT COMPLETED DATE/TIME: 11/15/2017 8:17 am REASON FOR STUDY: Hemoptysis; heavy smoker COMPARISON: Chest radiograph 11/12/2017 TECHNIQUE: CT scan performed of the chest without intravenous contrast. Images reviewed with lung, soft tissue and bone windows. Reconstructed coronal and sagittal MPR images reviewed. All images st ored on PACS. All CT scanners at this facility use dose modulation, iterative reconstruction, and/or weight based d osing when appropriate to reduce radiation dose to as low as reasonably achievable (ALARA). [facility]: Dose Right [facility]: CareDose [facility]: Dose Right [facility]: Teradose 4D [facility]: Smart Acturis RADIATION DOSE: CT Rad equipment meets quality standard of care and radiation dose reduction techniq ues were employed. CTDIvol: 11.1 mGy. DLP: 437 mGy-cm. mGy. LIMITATIONS: No technical limitations. FINDINGS: LUNGS AND PLEURA: Trace biapical mixed centrilobular and paraseptal emphysematous changes. Subtle peripheral opacities involving the right middle lobe and lingula may represent scarring. Le ft upper lobe perihilar ground-glass opacities (axial images 46 through 52). Pleural based nodular d ensity along the right major fissure measures 18 x 3 x 22 mm. Scattered bibasilar subsegmental airwa y No pleural effusions, calcifications. HILAR AND MEDIASTINAL STRUCTURES: No identified masses or abnormal nodes. No obvious aneurysm. HEART AND VASCULAR STRUCTURES: No aneurysm. No pericardial effusion. UPPER ABDOMEN: No significant findings. Limited exam. THYROID AND OTHER SOFT TISSUES: No masses. No adenopathy. BONES: No significant finding. HARDWARE: None in the chest. OTHER: No other significant findings. IMPRESSION: 1. No evidence of central or segmental airway mass or obstruction. 2. Left upper lobe perihilar ground-glass opacities are nonspecific, differential considerations inc lude both infectious and neoplastic etiologies. Additionally, pleural-based nodular density along th e right major fissure merits continued follow-up in accordance with Fleischner society guidelines. 3. Early mixed centrilobular and paraseptal emphysematous changes. COMMENT: Fleischner Criteria for Ground Glass Nodules: >6mm ground glass single nodule: CT 6-12 mo, then CT every 2 yr until 5 yr TECHNICAL DOCUMENTATION: JOB ID: [id number] Quality ID # [id number]: Final reports with documentation of one or more dose reduction techniques (e.g., Au tomated exposure control, adjustment of the mA and/or kV according to patient size, use of iterative reconstruction technique) 2010 [employer]- All Rights Reserved Reading location - IP/workstation name: [email or web address]
[2017-11-15] MEDS: NICOTINE 14 MG/24 HR PATCH.TD24 TD SCH (10:19)
[2017-11-15] MEDS: AMLODIPINE BESYLATE 5 MG TABLET PO SCH (10:20)
[2017-11-15] MEDS: DOXYCYCLINE HYCLATE 100 MG TABLET PO SCH ×2 (10:21→21:15)
[2017-11-15] MEDS: FLUTICASONE/SALMETEROL DISKUS 500-50 MCG/DOSE IH SCH ×2 (10:21→21:16)
[2017-11-15] MEDS: TIOTROPIUM BROMIDE DPI 5 CAP/KIT (18 MCG/CAP) IH SCH (10:22)
--- NOTE | 2017-11-15 17:38 | PDOC PROGRESS REPORT ---
Subjective Progress Note for:: 11/15/17 Subjective:: GUILLE SUAREZ is a 57 year old male who presented to the emergency department with shortness of breath, dyspnea, cough 2 weeks. He was admitted for COPD exacerbation. The patient states that he ran out of his Advair a few weeks ago and his respiratory symptoms have been progressively getting worse since then. PMH includes hypertension, COPD, arthritis. The patient was seen this morning on rounds. He is resting comfortably in the bed on supplemental oxygen at 3 L/min. The patient is able to speak in complete sentences and he does not pause and take a breath in between each sentence. He states that he wants to go home. Patient seen by Dr. Rios yesterday evening, he recommended a non-contrast chest CT. Results pending. In an attempt to evaluate the patient for home O2, he was ambulated around the 4th floor on room air. This was done early in the morning and the patient's SP02 dropped to low 80s. instructional design manager states that the proper test to qualify for home O2 includes resting for 30 minutes without oxygen, followed by ambulation without oxygen. This exercise was completed later in the afternoon and the patient was able to maintain an SP02 91-93% but for a brief moment he dropped to 80%. Throughout the admission, the patient's respiratory status has been tenuous. Due to his lack of insurance it is difficult to get him home O2. Will continue to assess his ability to tolerate ambulation without O2. If the patient can consistently maintain SP02>88% then he can go home without oxygen and close follow up to a electrocardiographic technician. If the patient is still hypoxic while ambulating (SP02<88%) he will need to remain inpatient until we can arrange for him to go home with O2. Reason For Visit: COPD EXACERBATION, HYPERTENSION Physical Exam Vital Signs: Temp Pulse Resp BP Pulse Ox 98.6 F 91 16 143/73 H 95 11/15/17 15:57 11/15/17 16:44 11/15/17 16:44 11/15/17 15:57 11/15/17 16:44 Pulse Oximeter Continuous Start: 11/12/17 13: 03 Freq: RTQ4 Status: Active Document 11/15/17 16:44 CBR (Rec: 11/15/17 17:24 CBR [email or web address]) Pulse Oximetry Assessment Oxygen Saturation (92-100) 95 Oxygen Flow Rate (L/min) 2 Oxygen Delivery Method Nasal Cannula Equipment Usage Equipment in Use Continuous SpO2 Machine # [id number] Intake & Output 11/14/17 11/15/17 11/16/17 06:59 06:59 06:59 Intake Total 488 Balance 488 General appearance: PRESENT: no acute distress Eye exam: PRESENT: conjunctiva pink, EOMI, PERRLA Mouth exam: PRESENT: moist Neck exam: PRESENT: full ROM Respiratory exam: PRESENT: clear to auscultation silviano, prolonged expiratory phas , symmetrical, unlabored Cardiovascular exam: PRESENT: +S1, +S2 Pulses: PRESENT: normal radial pulses, normal dorsalis pedis pul GI/Abdominal exam: PRESENT: normal bowel sounds, soft. ABSENT: tenderness Rectal exam: PRESENT: deferred Extremities exam: PRESENT: full ROM Musculoskeletal exam: PRESENT: ambulatory, full ROM Neurological exam: PRESENT: alert, awake, oriented to person, oriented to place , oriented to time, oriented to situation Psychiatric exam: PRESENT: appropriate affect Results Impressions: Chest X-Ray 11/12/17 07:48 IMPRESSION: NO ACUTE RADIOGRAPHIC FINDING IN THE CHEST. Chest CT 11/15/17 06:00 IMPRESSION: 1. No evidence of central or segmental airway mass or obstruction. 2. Left upper lobe perihilar ground-glass opacities are nonspecific, differential considerations include both infectious and neoplastic etiologies. Additionally, pleural-based nodular density along the right major fissure merits continued follow-up in accordance with Fleischner society guidelines. 3. Early mixed centrilobular and paraseptal emphysematous changes. Status: Imported from PACS Assessment & Plan - Diagnosis (1) COPD exacerbation Is this a current diagnosis for this admission?: Yes Plan: COPD exacerbation secondary to non-compliance with home medication Continue Advair (LABA/ICS) initiate Spiriva (LAMA) Scheduled and PRN nebulizer treatments, Solu-Medrol IV every 6 hours Continuous pulse oximetry Supplemental oxygen via nasal cannula to maintain Sp02>88% Mucinex daily Doxycycline for acute bronchitis antibiotic coverage PFT completed today. Demonstrates severe obstructive ventilatory defect. Insignificant response to bronchodilator therapy. (2) Hypertension Qualifiers: Hypertension type: essential hypertension Qualified Code(s): I10 - Essential (primary) hypertension Is this a current diagnosis for this admission?: Yes Plan: Patient endorses a history of HTN, unclear what anti-HTN medical he takes Was taking Norvasc during previous hospitalizaiton, increased Norvasc dose to 10mg daily for better blood pressure control. 10mg IV Hydralazine for SBP > 160 (3) Tobacco use disorder Is this a current diagnosis for this admission?: Yes Plan: The patient admits to 40 pack year history. He is attempting to quit. Currently only smoking 3-4 cigarettes per day, was previously smoking 1 pack per day. Nicotine patch offered, but the patient declined. Guidance was provided regarding the importance of smoking cessation - Time Time Spent with patient: 15-24 minutes Medications reviewed and adjusted accordingly: Yes Anticipated discharge: Home Within: within 24 hours, within 48 hours - Inpatient Certification Based on my medical assessment, after consideration of the patient's comorbidities, presenting symptoms, or acuity I expect that the services needed warrant INPATIENT care.: Yes I certify that my determination is in accordance with my understanding of Medicare's requirements for reasonable and necessary INPATIENT services [42 CFR 412.3e].: Yes Medical Necessity: Risk of Complication if Not Cared For in Hospital - Plan Summary Plan Summary: Plan to discharge home within 24-48 hours
[2017-11-15] MEDS: ZOLPIDEM TARTRATE 5 MG TABLET PO PRN (21:16)
[2017-11-15] MEDS ORDERED: METHYLPREDNISOLONE INJ 125 MG/2 ML SDV IV SCH (22:00)
[2017-11-15] MEDS: METHYLPREDNISOLONE INJ 40 MG/1 ML SDV IV SCH (22:11)
--- NOTE | 2017-11-15 22:14 | PROGRESS NOTE E ---
Progress Note NAME: GUILLE SUAREZ : 1960 AGE: 57Y DATE: 11/15/2017 ROOM: 413 SUBJECTIVE: The patient is a 57-year-old male who came in with severe shortness of breath, chest tightness, and wheezing. Treated and managed as an acute COPD exacerbation. Apparently the patient says he has not been feeling well. There was no fever over the last 24 hours. The patient still coughing, sometimes yellow purulent sputum production and sometimes clear. No vomiting. No diarrhea. Started with Prevacid yesterday. Also started nicotine patch yesterday. There was no hemoptysis in the last 1-2 days. No fever, chills. No diarrhea. No abdominal pain. OBJECTIVE: GENERAL: The patient is awake, alert, coherent, oriented, afebrile. Not in acute severe respiratory distress. VITAL SIGNS: Temperature is 98.3 with a T-max of 98.6, blood pressure is 131/61, heart rate is 91, respiratory rate is 16, saturation is 94% on 2 liters nasal cannula. EYES: No jaundice or pallor. EARS, NOSE, AND THROAT: No ear drainage noted. No nasal discharge. CHEST AND LUNGS: No wheezing, no rhonchi, no coarse crackles. CARDIOVASCULAR: S1 and S2 is distinct. Normal rate, regular rhythm. ABDOMEN: Flabby, positive bowel sounds, soft, nondistended, nontender. EXTREMITIES: No joint swelling, no cellulitis. LABORATORY DATA: There is no CBC done today and no chemistry done today, and no ABG. IMAGING STUDIES: CT scan done street openings inspector today showed opacity involving the left upper lobe, maybe infectious process, pneumonic process, or bronchoalveolar carcinoma and an infiltrate involving the right lower lobe possible scarring versus inflammatory process. ASSESSMENT: 1. COPD IN ACUTE SEVERE EXACERBATION. Appeared to be improving and currently not in bronchospasm. 2. PULMONARY INFILTRATE LEFT UPPER LOBE AND RIGHT LOWER LOBE. Possibly early pneumonic process. 3. HISTORY OF SMOKING. 4. HISTORY OF HEMOPTYSIS. PLAN AND RECOMMENDATIONS: 1. We will do a sputum culture if patient starts producing yellow-green purulent sputum. 2. Continue doxycycline 100 mg p.o. b.i.d. for the next 10 days. 3. Recommend tapering the Solu-Medrol dose to oral prednisone and taper them slowly over a few days. 4. The patient may be able to go home tomorrow or Saturday. 5. Pulmonary clinic follow up in 3 weeks. 6. Continue Advair 500 mcg disk inhaler, 1 puff b.i.d. 7. Continue Spiriva inhaler 1 capsule to be inhaled daily. 8. Albuterol nebulizer treatment every 6 hours as needed when discharged home. 9. The patient needs home oxygen therapy evaluation by respiratory therapist. Needs pulse oximetry, oxygen saturation needs to be determined when the patient is walking at room air and at rest to determine need for oxygen therapy at home. 10. Will sign off tonight. Recommend pulmonary clinic follow up in 3 weeks. If you have any questions, please feel free to call me. DICTATING PHYSICIAN: BAY ROMERO MD,JENNIFER,MPH [id number] PHY#: [id number] ID: [id number] JOB#: [id number] ACCT: [id number] cc: > MTDD
[2017-11-16] MEDS: IPRATROPIUM/ALBUTEROL 0.5-2.5 MG/3 ML AMPUL NEB SCH ×3 (03:58→11:46)
[2017-11-16 05:31] LABS: ABSOLUTE LYMPHOCYTES (AUTO) 0.7 10^3/uL (0.5-4.7); ABSOLUTE MONOCYTES (AUTO) 0.2 10^3/uL (0.1-1.4); BASOPHILS % (AUTO) 0.1 % (0-2); HEMATOCRIT 45.7 % (37.9-51.0); HEMOGLOBIN 15.7 g/dL (13.5-17.0); LYMPHOCYTES % (AUTO) 9.4 % (13-45); MEAN CORPUSCULAR HEMOGLOBIN 32.9 pg (27.0-33.4); MEAN CORPUSCULAR HGB CONC 34.3 g/dL (32.0-36.0); MEAN CORPUSCULAR VOLUME 96 fl (80-97); MONOCYTES % (AUTO) 2.5 % (3-13); PLATELET COUNT 165 10^3/uL (150-450); RED BLOOD COUNT 4.77 10^6/uL (4.35-5.55); RED CELL DISTRIBUTION WIDTH 13.5 % (11.5-14.0); TOTAL CELLS COUNTED % (AUTO) 100 %
[2017-11-16] MEDS: HEPARIN SOD (PORCINE) 5,000 UNIT/ML 1 ML SYRINGE SUBCUT SCH ×2 (05:45→13:12)
[2017-11-16] MEDS: METHYLPREDNISOLONE INJ 40 MG/1 ML SDV IV SCH ×2 (05:45→13:19)
[2017-11-16] MEDS: BENZONATATE 100 MG CAPSULE PO SCH ×2 (05:45→13:19)
[2017-11-16] MEDS: FLUTICASONE/SALMETEROL DISKUS 500-50 MCG/DOSE IH SCH (09:41)
[2017-11-16] MEDS: NICOTINE 14 MG/24 HR PATCH.TD24 TD SCH (09:41)
[2017-11-16] MEDS: DOXYCYCLINE HYCLATE 100 MG TABLET PO SCH (09:41)
[2017-11-16] MEDS: AMLODIPINE BESYLATE 5 MG TABLET PO SCH (09:41)
[2017-11-16] MEDS: TIOTROPIUM BROMIDE DPI 5 CAP/KIT (18 MCG/CAP) IH SCH (09:41)
[2017-11-16 13:57] VITALS: BP 143/73
== END 2017-11-16 14:00 | disposition home or self-care (01) | DRG 192 ==
LOC: ER 07:28 → EH 11:16 → 4N 17:47 → OBSVTOIN 11-14 17:19
PROVIDERS: ADMIT Family Medicine; ATTEND Family Medicine
PROC: 3E0F73Z Introduction of Anti-inflammatory into Respiratory Tract, Via Natural or Artificial Opening (ICD-10-PCS; principal; 2017-11-14)
DX: J44.1 Chronic obstructive pulmonary disease with (acute) exacerbation (principal); I10 Essential (primary) hypertension; M19.90 Unspecified osteoarthritis, unspecified site; F17.210 Nicotine dependence, cigarettes, uncomplicated; Z88.8 Allergy status to other drugs, medicaments and biological substances; Z82.49 Family history of ischemic heart disease and other diseases of the circulatory system; Z91.19 Patient's noncompliance with other medical treatment and regimen
CPT/HCPCS: 36415; 36600; 71046; 71250; 80048; 80053; 82803; 83735; 84100; 85025; 85027; 87070; 87205; 94060; 94640; 94762; 96374; 96376; 99285; G0378; J1644; J2920; J2930; J3490; J7614; J7620

== ENCOUNTER → 2018-05-09 | Outpatient (CLI) | payer MEDICAID ==
--- NOTE | 2018-05-09 15:11 | RADIOLOGY REPORT (SQ) ---
EXAM DESCRIPTION: CT CHEST WITH COMPLETED DATE/TIME: 05/09/2018 2:55 pm REASON FOR STUDY: ABNORMAL FINDINGS ON DIAGNOSTIC IMAGING OF BODY STRUCTURES R93.8 ABNORMAL FINDING S ON DIAGNOSTIC IMAGING OF BODY STRUCT COMPARISON: None. TECHNIQUE: CT scan of the chest performed using helical scanning technique with dynamic intravenous contrast injection. Images reviewed with lung, soft tissue and bone windows. Reconstructed coronal and sagittal MPR and MIP images reviewed. All images stored on PACS. All CT scanners at this facility use dose modulation, iterative reconstruction, and/or weight based d osing when appropriate to reduce radiation dose to as low as reasonably achievable (ALARA). [facility]: Dose Right [facility]: CareDose [facility]: Dose Right [facility]: Teradose 4D [facility]: Etogas CONTRAST TYPE AND DOSE: contrast/concentration: Isovue 350.00 mg/ml; Total Contrast Delivered: 80.0 ml; Total Saline Delivered: 55.0 ml RENAL FUNCTION: 0.8 RADIATION DOSE: CT Rad equipment meets quality standard of care and radiation dose reduction techniq ues were employed. CTDIvol: 10.3 mGy. DLP: 384 mGy-cm. . LIMITATIONS: None. FINDINGS: LUNGS AND PLEURA: Previously described ground-glass opacity in the left upper lobe has res olved. There is a stable subpleural nodule in the right it measures 1.5 cm in greatest dimensions on today's study which is probably slightly smaller than noted on prior exam. No consolidation or effu reese. Mild stable bilateral emphysematous changes are noted. HILAR AND MEDIASTINAL STRUCTURES: No identified masses or abnormal nodes. HEART AND VASCULAR STRUCTURES: No aneurysm or dissection. No central pulmonary emboli. No pericardi al effusion. HARDWARE: None in the chest. UPPER ABDOMEN: There is fatty infiltration of liver. THYROID AND OTHER SOFT TISSUES: No masses. No adenopathy. BONES: No significant finding. OTHER: No other significant finding. IMPRESSION: Slightly improved subpleural pulmonary nodule in the right lung base. Ground-glass opac ities previously described have resolved. TECHNICAL DOCUMENTATION: JOB ID: [id number] Quality ID # [id number]: Final reports with documentation of one or more dose reduction techniques (e.g., Au tomated exposure control, adjustment of the mA and/or kV according to patient size, use of iterative reconstruction technique) 2010 [employer]- All Rights Reserved Reading location - IP/workstation name: [email or web address]
== END ==
LOC: RAD 14:21
PROVIDERS: ATTEND Family Medicine
DX: R93.8 Abnormal findings on diagnostic imaging of other specified body structures (principal)
CPT/HCPCS: 71260; 82565